=== PATIENT | male | born 1975 | race Two or more races ===

== ENCOUNTER → 2016-07-06 | Outpatient (CLI) | payer BC ==
[2016-07-06 12:58] LABS: BASOPHILS # (AUTO) 0.1 /CMM (0.0-0.2); BASOPHILS % (AUTO) 1.1 % (0.0-2.0); EOSINOPHILS # (AUTO) 0.3 /CMM (0.0-0.7); EOSINOPHILS % (AUTO) 4.3 % (0.0-6.0); HEMATOCRIT 40 % (39-51); HEMOGLOBIN 13.6 g/dL (13.5-17.5); LYMPHOCYTES # (AUTO) 2.1 /CMM (0.8-4.8); LYMPHOCYTES % (AUTO) 29.7 % (20.0-44.0); MEAN CORPUSCULAR HEMOGLOBIN 31 PG (26.0-33.0); MEAN CORPUSCULAR HGB CONC 34 g/dl (31.0-36.0); MEAN CORPUSCULAR VOLUME 91 fL (80-96); MONOCYTES # (AUTO) 0.4 /CMM (0.1-1.30); MONOCYTES % (AUTO) 6.2 % (2.0-12.0); NEUTROPHILS # (AUTO) 4.1 /CMM (1.8-8.9); NEUTROPHILS % (AUTO) 58.7 % (43.0-81.0); PLATELET COUNT (AUTO) 252 /CMM (150-450); RDW COEFFICIENT OF VARIATION 13.4 (11.5-15.0); RED BLOOD CELL COUNT(AUTO) 4.36 MIL/uL (4.5-6.0); WHITE BLOOD COUNT (AUTO) 7.1 K/uL (4.3-11.0)
[2016-07-06 13:12] LABS: ALBUMIN 4.3 g/dL (3.4-5.0); BILIRUBIN,TOTAL 0.3 mg/dL (0.2-1.0); CREATININE 0.8 mg/dL (0.6-1.3); POTASSIUM 4.1 mmol/L (3.5-5.1); TOTAL PROTEIN, SERUM 7.3 g/dL (6.4-8.2)
[2016-07-06 13:20] LABS: THYROID STIMULATING HORMONE 1.661 uIU/mL (0.358-3.74)
== END | disposition home or self-care (01) ==
LOC: LAB 11:57
PROVIDERS: ATTEND Family Medicine
DX: J98.11 Atelectasis (principal); R14.0 Abdominal distension (gaseous); M47.814 Spondylosis without myelopathy or radiculopathy, thoracic region
CPT/HCPCS: 36415; 71020-TC; 80053-TC; 80061-TC; 84439-TC; 84443-TC; 84480; 85025-TC; 86677

== ENCOUNTER 2016-07-13 10:07 | Outpatient (CLI) | payer BC | END 2016-07-13 23:59 | disposition home or self-care (01) | LOC: CARD 10:07 | PROVIDERS: ATTEND Family Medicine | DX: I07.1 Rheumatic tricuspid insufficiency (principal); I37.1 Nonrheumatic pulmonary valve insufficiency | CPT/HCPCS: 93307-TC ==

== ENCOUNTER 2018-04-30 15:58 | Outpatient (CLI) | payer BC | END 2018-04-30 23:59 | disposition home or self-care (01) | LOC: LAB 15:58 | PROVIDERS: ATTEND Family Medicine | DX: R31.9 Hematuria, unspecified (principal) | CPT/HCPCS: 87086-TC ==

== ENCOUNTER 2018-05-01 10:32 | Outpatient (CLI) | payer BC ==
[2018-05-01 11:16] LABS: BASOPHILS # (AUTO) 0.1 /CMM (0.0-0.2); BASOPHILS % (AUTO) 1.3 % (0.0-2.0); EOSINOPHILS % (AUTO) 1.8 % (0.0-6.0); HEMATOCRIT 42 % (39-51); HEMOGLOBIN 14.3 g/dL (13.5-17.5); LYMPHOCYTES # (AUTO) 1.9 /CMM (0.8-4.8); LYMPHOCYTES % (AUTO) 22.7 % (20.0-44.0); MEAN CORPUSCULAR HGB CONC 34 g/dl (31.0-36.0); MEAN CORPUSCULAR VOLUME 93 fL (80-96); MONOCYTES # (AUTO) 0.5 /CMM (0.1-1.30); MONOCYTES % (AUTO) 6.5 % (2.0-12.0); NEUTROPHILS # (AUTO) 5.7 /CMM (1.8-8.9); NEUTROPHILS % (AUTO) 67.7 % (43.0-81.0); PLATELET COUNT (AUTO) 259 /CMM (150-450); RED BLOOD CELL COUNT(AUTO) 4.47 MIL/uL (4.5-6.0); WHITE BLOOD COUNT (AUTO) 8.4 K/uL (4.3-11.0)
[2018-05-01 11:30] LABS: ALBUMIN 4.5 g/dL (3.4-5.0); BILIRUBIN,TOTAL 0.6 mg/dL (0.2-1.0); CALCIUM, SERUM 9.1 mg/dL (8.5-10.1); CREATININE 0.9 mg/dL (0.6-1.3); POTASSIUM 4.3 mmol/L (3.5-5.1); TOTAL PROTEIN, SERUM 7.5 g/dL (6.4-8.2)
[2018-05-01 12:55] LABS: THYROID STIMULATING HORMONE 1.368 uIU/mL (0.358-3.74)
== END 2018-05-01 23:59 | disposition home or self-care (01) ==
LOC: LAB 10:32
PROVIDERS: ATTEND Family Medicine
DX: K21.9 Gastro-esophageal reflux disease without esophagitis (principal)
CPT/HCPCS: 36415; 80053-TC; 80061-TC; 84439-TC; 84443-TC; 85025-TC; 87086-TC

== ENCOUNTER 2018-05-07 10:48 | Outpatient (CLI) | payer BC ==
[2018-05-07 11:50] LABS: CREATININE 0.8 mg/dL (0.6-1.3)
[2018-05-07 12:24] LABS: PROSTATE SPECIFIC ANTIGEN SCR 0.75 ng/mL (0.00-4.00)
== END 2018-05-07 23:59 | disposition home or self-care (01) ==
LOC: LAB 10:48
PROVIDERS: ATTEND Family Medicine
DX: R31.9 Hematuria, unspecified (principal)
CPT/HCPCS: 36415; 82565-TC; 84153-TC; 84520-TC

== ENCOUNTER 2018-05-09 11:02 | Outpatient (CLI) | payer BC ==
[2018-05-09] MEDS ORDERED: IV NS 0.9% 250 ML IV ONE (11:19)
[2018-05-09] MEDS ORDERED: IOHEXOL-350 100 ML VIAL IV ONE (11:19)
[2018-05-09] MEDS ORDERED: CT SWABBABLE VALVE TRANS SET 1 EA INFUS.SET MC ONE (11:19)
== END 2018-05-09 23:59 | disposition home or self-care (01) ==
LOC: CT 11:02
PROVIDERS: ATTEND Family Medicine
DX: N28.1 Cyst of kidney, acquired (principal); I70.0 Atherosclerosis of aorta; M47.817 Spondylosis without myelopathy or radiculopathy, lumbosacral region; M43.17 Spondylolisthesis, lumbosacral region
CPT/HCPCS: 74178; J7050; Q9967

== ENCOUNTER 2019-11-02 09:06 | Outpatient (CLI) | payer BC ==
[2019-11-02 11:06] LABS: BASOPHILS # (AUTO) 0.1 /CMM (0.0-0.2); BASOPHILS % (AUTO) 1.2 % (0.0-2.0); EOSINOPHILS % (AUTO) 3.8 % (0.0-6.0); HEMATOCRIT 41 % (39-51); HEMOGLOBIN 13.6 g/dL (13.5-17.5); LYMPHOCYTES # (AUTO) 2.1 /CMM (0.8-4.8); MEAN CORPUSCULAR HGB CONC 33 g/dl (31.0-36.0); MEAN CORPUSCULAR VOLUME 94 fL (80-96); MONOCYTES # (AUTO) 0.4 /CMM (0.1-1.30); NEUTROPHILS # (AUTO) 4.2 /CMM (1.8-8.9); PLATELET COUNT (AUTO) 234 /CMM (150-450); RED BLOOD CELL COUNT(AUTO) 4.37 MIL/uL (4.5-6.0); WHITE BLOOD COUNT (AUTO) 7.1 K/uL (4.3-11.0)
[2019-11-02 12:53] LABS: BILIRUBIN,TOTAL 0.2 mg/dL (0.2-1.0); CALCIUM, SERUM 8.6 mg/dL (8.5-10.1); CREATININE 0.7 mg/dL (0.6-1.3)
[2019-11-02 12:58] LABS: THYROID STIMULATING HORMONE 1.672 uIU/mL (0.358-3.74)
== END 2019-11-02 23:59 | disposition home or self-care (01) ==
LOC: US 09:06
PROVIDERS: ATTEND Family Medicine
DX: R16.2 Hepatomegaly with splenomegaly, not elsewhere classified (principal); K76.0 Fatty (change of) liver, not elsewhere classified; K62.1 Rectal polyp; R31.9 Hematuria, unspecified
CPT/HCPCS: 36415; 76700-TC; 80053-TC; 80061-TC; 82150-TC; 82306; 83690-TC; 84439-TC; 84443-TC; 85025-TC

== ENCOUNTER 2020-08-02 10:39 | Outpatient (CLI) | payer BC | END 2020-08-02 23:59 | disposition home or self-care (01) | LOC: MRI 10:39 | PROVIDERS: ATTEND Family Medicine | DX: M19.011 Primary osteoarthritis, right shoulder (principal); M75.21 Bicipital tendinitis, right shoulder; S43.401A Unspecified sprain of right shoulder joint, initial encounter; R60.0 Localized edema; M77.8 Other enthesopathies, not elsewhere classified; M50.33 Other cervical disc degeneration, cervicothoracic region; M48.02 Spinal stenosis, cervical region; M25.78 Osteophyte, vertebrae | CPT/HCPCS: 72141-TC; 72146-TC; 73221-TC ==

== ENCOUNTER 2020-09-06 07:32 | Day surgery (SDC) | payer BC ==
[~2020-09-06] VITALS: Ht 177.8 cm; Wt 98.9 kg
[2020-09-06] MEDS ORDERED: NITROGLYCERIN 0.4 MG/TAB BOTTLE ONE (08:01)
[2020-09-06] MEDS ORDERED: IOHEXOL-350 100 ML VIAL IV ONE (08:01)
[2020-09-06] MEDS ORDERED: IV NS 0.9% 250 ML IV ONE (08:02)
[2020-09-06] MEDS ORDERED: CT SWABBABLE VALVE TRANS SET 1 EA INFUS.SET MC ONE (08:02)
[2020-09-06] MEDS ORDERED: METOPROLOL TARTRATE INJ 5 MG/5 ML AMPUL ONE (08:02)
[2020-09-06 08:29] LABS: CALCIUM, SERUM 8.6 mg/dL (8.5-10.1); CREATININE 0.8 mg/dL (0.6-1.3); POTASSIUM 4.3 mmol/L (3.5-5.1)
[2020-09-06] MEDS ORDERED: IV NS 0.9% 500 ML IV PRN (09:00)
[2020-09-06] MEDS ORDERED: METOPROLOL TARTRATE INJ 5 MG/5 ML AMPUL IVP PRN (09:00)
[2020-09-06] MEDS ORDERED: NITROGLYCERIN 0.4 MG/TAB BOTTLE SL ONE (09:00)
[2020-09-06 09:38] VITALS: BP 102/69
--- NOTE | 2020-09-06 09:41 | NUR ---
IV removed. Catheter intact and site benign. Pressure and 4x4 applied to site. No bleeding noted.Patient discharged to home in stable condition. Written and verbal after care instructions given. Patient verbalizes understanding of instruction.normal saline not use per protocol vital stable
== END 2020-09-06 23:59 | disposition home or self-care (01) ==
LOC: CT 07:32
PROVIDERS: ATTEND Internal Medicine Interventional Cardiology
DX: R06.00 Dyspnea, unspecified (principal); R94.4 Abnormal results of kidney function studies; M47.814 Spondylosis without myelopathy or radiculopathy, thoracic region
CPT/HCPCS: 36415; 75574; 80048; J7050; Q9967; J3490